=== PATIENT | female | born 1980 | race Caucasian/White ===

== ENCOUNTER → 2020-03-18 | Outpatient (CLI) | payer BC ==
[~2020-03-18] MED LIST: ACHD5005 PO; ASP81CT PO; BIRTH CONTROL PILL PO; CATHETER FLUSH 10 ML SYR IV PRN; CETI-208 PO; DICY10CA26 PO; DIPH25TA82 PO; FOLI0.4T2 PO; GFN600TCR PO; HOLD METFORMIN - RECEIVED CONTRAST 20 ML VIAL IV SCH; IBP600T1 PO; IOHEXOL 350 MG/ML 100 ML (OMNIPAQUE 350) VIAL IV ONE; MULT-241 PO; NS 100 ML (IVPB) BAG IV ONE; OXYC-12 PO; [UNRECOGNIZED DRUG - OTHER] EACH EAR
--- NOTE | 2020-03-18 14:15 | Diagnostic Imaging Report ---
PROCEDURE: CT abdomen and pelvis with contrast. TECHNIQUE: Multiple contiguous axial images were obtained through the abdomen and pelvis after administration of intravenous contrast. Auto Exposure Controls were utilized during the CT exam to meet ALARA standards for radiation dose reduction. INDICATION: Bloating with right-sided abdominal pain. COMPARISON: No prior studies are available for comparison. FINDINGS: The lung bases are clear. No discrete liver mass is detected. The gallbladder is unremarkable. No biliary ductal dilatation is identified. The pancreas and spleen are unremarkable. No adrenal mass is identified. The kidneys are unremarkable. The aorta is nonaneurysmal. The small and large bowel loops are of normal caliber. There is no obstruction. There is moderate stool in the colon. The appendix is visualized and is unremarkable. No free fluid or fluid collection is identified. The bladder is unremarkable. The bony structures are not acute. IMPRESSION: Unremarkable CT of the abdomen and pelvis. No acute abnormality is identified. Dictated by: Dictated on workstation # [id number]
== END ==
LOC: RAD 12:54
PROVIDERS: ATTEND Family Medicine
DX: R14.0 Abdominal distension (gaseous) (principal); R19.7 Diarrhea, unspecified; R11.2 Nausea with vomiting, unspecified
CPT/HCPCS: 74177

== ENCOUNTER → 2020-12-16 | Outpatient (CLI) | payer BC ==
[~2020-12-16] MED LIST changes: -CATHETER FLUSH 10 ML SYR IV PRN; -HOLD METFORMIN - RECEIVED CONTRAST 20 ML VIAL IV SCH; -IOHEXOL 350 MG/ML 100 ML (OMNIPAQUE 350) VIAL IV ONE; -NS 100 ML (IVPB) BAG IV ONE
--- NOTE | 2020-12-16 14:17 | Diagnostic Imaging Report ---
INDICATION: Routine screening. COMPARISON: No prior studies are available for comparison. This is a baseline study. TECHNIQUE: 2D and 3D bilateral screening mammography was performed with CAD. FINDINGS: Both breasts are heterogeneously dense, limiting the sensitivity of mammography. There is a rounded density in the outer right breast which appears to be superiorly located on the MLO view. This may represent a cyst. There is a large rounded density in the upper aspect of the left breast which appears to be outer and, again, this may represent a cyst as well. There are benign calcifications present. No malignant appearing microcalcifications are seen. The axillae are unremarkable. IMPRESSION: There are large rounded densities in the upper outer aspects of both breasts, likely cysts. Further evaluation with ultrasound is recommended. ACR BI-RADS Category 0: Incomplete. (Needs additional imaging evaluation). Result letter will be mailed to the patient. Note: At least 10% of breast cancer is not imaged by mammography. Dictated by: Dictated on workstation # [id number]
== END ==
LOC: RAD 12:46
PROVIDERS: ATTEND Obstetrics & Gynecology
DX: Z12.31 Encounter for screening mammogram for malignant neoplasm of breast (principal)
CPT/HCPCS: 77063; 77067

== ENCOUNTER → 2020-12-29 | Outpatient (CLI) | payer BC ==
--- NOTE | 2020-12-29 18:09 | Diagnostic Imaging Report ---
EXAM: Ultrasound breasts limited bilateral INDICATION: Abnormal mammogram The baseline screening mammogram performed on 12/16/2010 noted large rounded densities in the upper outer aspects of each breast. These were felt to be most likely due to cyst formation. On this exam, there are indeed multiple well-circumscribed avascular hypoechoic lesions involving both breasts. I do suspect that these are cysts. The largest cyst on the right is in the 9 to 10 o'clock position and measures 3.2 x 1.3 x 3.2 cm. The largest cyst on the left is in the 2 to 3 o'clock position and measures 2.6 x 1.5 x 0.9 cm. There are a few internal echoes in some of the cysts and these may be indications that the cysts have been minimally complicated by infection and/or hemorrhage. There is no solid mass to suggest malignancy. IMPRESSION: 1. The rounded densities involving both breasts seen on the mammograms are felt to represent cysts. There is no solid mass to suggest malignancy. 2. The patient should have her annual bilateral screening mammogram on schedule in December 2021 ACR BI-RADS Category 2: Benign findings. Result letter will be mailed to the patient. Note: At least 10% of breast cancer is not imaged by mammography. Dictated by: Dictated on workstation # [id number]
== END ==
LOC: RAD 14:15
PROVIDERS: ATTEND Obstetrics & Gynecology
DX: R92.2 Inconclusive mammogram (principal)
CPT/HCPCS: 76642

== ENCOUNTER → 2021-12-21 | Outpatient (CLI) | payer BC ==
--- NOTE | 2021-12-21 14:38 | Diagnostic Imaging Report ---
INDICATION: Palpable lump in the right breast as well as fullness in the axillary regions bilaterally. COMPARISON: Correlation is made with prior mammogram from 12/16/2020. TECHNIQUE: 2D and 3D bilateral diagnostic mammography was performed with CAD. FINDINGS: Both breasts are heterogeneously dense, limiting the sensitivity of mammography. There are numerous circumscribed masses in both breasts. There are large circumscribed densities in the upper and outer portions of both breasts, likely accounting for the palpable abnormality on the right. There are also circumscribed lesions in the medial portions of both breasts. These all likely represent cysts. The axillae are unremarkable. There are no malignant-appearing microcalcifications. There are occasional benign calcifications. IMPRESSION: Circumscribed densities bilaterally, likely owing to multiple breast cysts. Further evaluation of the upper and outer aspects of both breasts as well as the medial aspects of both breasts is recommended. In addition, sonographic interrogation of the areas of axillary fullness bilaterally is recommended. This will be performed today. ACR BI-RADS Category 0: Incomplete. (Needs additional imaging evaluation). Result letter will be mailed to the patient. Note: At least 10% of breast cancer is not imaged by mammography. Dictated by: Dictated on workstation # [id number]
--- NOTE | 2021-12-21 16:39 | Diagnostic Imaging Report ---
INDICATION: Right breast lump and bilateral breast densities. COMPARISON: Correlation is made with the diagnostic mammogram from earlier this same day. FINDINGS: Sonographic interrogation of the upper and outer aspects of both breasts as well as the medial aspects of both breasts was performed. In addition, bilateral axillae were evaluated. The palpable lump in the upper outer right breast represents a debris-filled cyst measuring 2.9 x 3.0 x 1.6 cm. This is located at the 10 o'clock location 4 cm from the nipple. No internal vascularity is seen. There are numerous cysts in the medial aspect of the right breast accounting for the mammographic densities. On the left, there are multiple cysts in the upper outer as well as medial aspect correlating with mammographic densities. The largest is at the 2 o'clock location 5 cm from the nipple measuring 3.5 x 3.9 x 1.7 cm. No solid masses are seen. The bilateral axillae are unremarkable. IMPRESSION: Numerous breast cysts bilaterally account for the mammographic densities as well as the palpable abnormality in the upper outer right breast. The palpable abnormality is slightly complex and contains debris. No solid or concerning findings are identified. ACR BI-RADS Category 2: Benign findings. Dictated by: Dictated on workstation # [id number]
== END ==
LOC: RAD 13:57
PROVIDERS: ATTEND Obstetrics & Gynecology
DX: N60.02 Solitary cyst of left breast (principal); N60.01 Solitary cyst of right breast
CPT/HCPCS: 76642; 77066; G0279; 77062